=== PATIENT | female | born 1990 | race American Indian/Alaskan Native ===

== ENCOUNTER 2017-02-02 15:56 | Outpatient (CLI) | payer BC, MEDICAID ==
[2017-02-02] MEDS ORDERED: LACTATED RINGERS 500 ML IV ONE (18:23)
[2017-02-02 19:21] LABS: Bacteria,Urine 1+ /HPF (Negative); Bilirubin,Urine NEG (Negative); Blood,Urine NEG (Negative); Ketones,Urine 20 mg/dL (Negative); Leukocyte Esterase,Urine SM (Negative); Mucus,Urine 3+ /HPF; Nitrite,Urine NEG (Negative); Protein,Urine <15 mg/dL mg/dL (Negative); Urobilinogen,Urine < 2.0 mg/dL (<2.0)
[2017-02-02 19:29] VITALS: BP 106/60
[2017-02-02] MEDS ORDERED: LACTATED RINGERS 1,000 ML IV ONE (19:52)
== END 2017-02-02 20:58 | disposition home or self-care (01) ==
LOC: TRG 15:56 → EDSTATUS 16:02 → TRG 20:58
PROVIDERS: ATTEND Obstetrics & Gynecology Gynecology
DX: O26.893 Other specified pregnancy related conditions, third trimester (principal); R07.9 Chest pain, unspecified; R10.9 Unspecified abdominal pain; Z3A.31 31 weeks gestation of pregnancy
CPT/HCPCS: 36415; 81001; 82731; 93005; 93010; 96360; 96361; J7120

== ENCOUNTER 2017-03-09 21:15 | Outpatient (CLI) | payer MEDICAID ==
[2017-03-09 21:36] VITALS: BP 111/67
== END 2017-03-09 22:15 | disposition home or self-care (01) ==
LOC: LD 21:15 → TRG 21:15 → LD 21:29 → TRG 22:15
PROVIDERS: ATTEND Obstetrics & Gynecology Gynecology
DX: O47.03 False labor before 37 completed weeks of gestation, third trimester (principal); Z3A.36 36 weeks gestation of pregnancy

== ENCOUNTER 2017-03-18 17:37 | Outpatient (CLI) | payer MEDICAID ==
[2017-03-18 18:03] VITALS: BP 106/62
== END 2017-03-18 18:39 | disposition home or self-care (01) ==
LOC: TRG 17:37
PROVIDERS: ATTEND Obstetrics & Gynecology Gynecology
DX: O47.03 False labor before 37 completed weeks of gestation, third trimester (principal); Z3A.38 38 weeks gestation of pregnancy

== ENCOUNTER 2017-03-24 17:59 | Inpatient (IN) | payer MEDICAID ==
[2017-03-24] MEDS ORDERED: MINERAL OIL PO PRN (19:09)
[2017-03-24] MEDS ORDERED: ZOFRAN IV PRN ×2 (19:09→22:50)
[2017-03-24] MEDS ORDERED: BRETHINE IVP PRN (19:09)
[2017-03-24] MEDS ORDERED: STADOL IV PRN (19:09)
[2017-03-24] MEDS ORDERED: BRETHINE SUB-Q PRN (19:09)
[2017-03-24] MEDS ORDERED: ePHEDrine SULFATE IV PRN (19:09)
[2017-03-24] MEDS ORDERED: XYLOCAINE 2% INFILTRATI ONE (19:09)
[2017-03-24] MEDS ORDERED: NARCAN 0.4 MG/1 ML IV PRN (19:09)
[2017-03-24] MEDS ORDERED: SUBLIMAZE IV PRN (19:09)
--- NOTE | 2017-03-24 19:17 | History and Physical Report ---
History of Present Illness Date of examination: 03/24/17 Date of admission: 03/24/17 18:49 Chief complaint: Labor History of present illness: Pt is a 26yo BF EDC 03/31/17; EGA 39 0/7 weeks presents to L&D complaining of RUC's q 3-4 mins. 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 records are available and GBS is Negative. Past History Past Medical History: asthma [employer] History: herpes Family/Genetic History: none Social history: no significant social history, single - Obstetrical History Expected Date of Delivery: 03/31/17 Actual Gestation: 39 Week(s) 0 Day(s) : 4 Medications and Allergies Allergies Allergy/AdvReac Type Severity Reaction Status Date / Time Penicillins Allergy Severe Hives Verified 03/24/17 18:11 Home Medications Medication Instructions Recorded Confirmed Last Taken Type Acyclovir 400 mg PO TID 02/02/17 02/02/17 02/02/17 History Vit-Fe Fumar-FA [ 1 tab PO QDAY 02/02/17 02/02/17 02/02/17 History Vitamin] Active Meds: Active Medications Butorphanol Tartrate (Stadol) 2 mg IV Q2H PRN PRN Reason: Pain , Severe (7-10) Ephedrine Sulfate (Ephedrine Sulfate) 10 mg IV Q2M PRN PRN Reason: Hypotension Fentanyl (Sublimaze) 100 mcg IV Q2H PRN PRN Reason: Labor Pain Cefazolin Sodium (Ancef/Ns 1 Gm/50 Ml) 1 gm in 50 mls @ 100 mls/hr IV Q8HR HAVEN PRN Reason: Protocol Lactated Ringer's (Lactated Ringers) 1,000 mls @ 125 mls/hr IV DIRECT HAVEN Oxytocin/Sodium Chloride (Pitocin/Ns 20 Unit/1000ml Drip) 20 units in 1,000 mls @ 125 mls/hr IV DIRECT HAVEN Oxytocin/Sodium Chloride (Pitocin/Ns 30 Unit/500ml) 30 units in 500 mls @ 4 mls /hr IV TITR HAVEN PRN Reason: Protocol Oxytocin/Sodium Chloride (Pitocin/Ns 30 Unit/500ml) 30 units in 500 mls @ 1 mls /hr IV TITR HAVEN; 1 MILLIUNITS/MIN PRN Reason: Protocol Lidocaine (Xylocaine 2%) 20 ml INFILTRATI ONCE ONE Stop: 03/24/17 19:10 Mineral Oil (Mineral Oil) 30 ml PO QHS PRN PRN Reason: Constipation Naloxone HCl (Narcan 0.4 Mg/1 Ml) 0.1 mg IV Q2MIN PRN PRN Reason: Res Rate </= 8 or 02 SAT < 92% Ondansetron HCl (Zofran) 4 mg IV Q8H PRN PRN Reason: Nausea And Vomiting Terbutaline Sulfate (Brethine) 0.25 mg SUB-Q ONCE PRN PRN Reason: Hyperstimulation/Hypertonicity Terbutaline Sulfate (Brethine) 0.25 mg IVP ONCE PRN PRN Reason: Hyperstimulation/Hypertonicity Review of Systems All systems: negative - Vital Signs Vital signs: Vital Signs Temp Pulse Resp Pulse Ox 98.1 F 93 H 18 99 03/24/17 18:18 03/24/17 18:18 03/24/17 18:18 03/24/17 18:18 Temp Pulse Resp BP Pulse Ox 98.1 F 95 H 18 118/70 99 03/24/17 18:18 03/24/17 19:15 03/24/17 18:18 03/24/17 18:53 03/24/17 19:15 - Physical Exam Breasts: Positive: deferred Cardiovascular: Regular rate Lungs: Positive: Clear to auscultation Abdomen: Positive: normal appearance Genitourinary (Female): Positive: normal external genitalia Vagina: Positive: normal moisture Uterus: Positive: enlarged Extremities: Positive: normal - Obstetrical FHR: category 1 Uterine Contraction Monitor Mode: External Cervical Dilatation: 5 Cervical Effacement Percentage: 80 station: -2 Uterine Contraction Pattern: Regular Uterine Tone Measurement Phase: Contraction Uterine Contraction Intensity: Moderate Results Result Diagrams: 03/24/17 19:55 All other labs normal. Assessment and Plan - Patient Problems (1) 39 weeks gestation of Onset Date: 03/24/17 Current Visit: Yes Status: Acute Plan to address problem: A: IUP @ 39 0/7 weeks in labor GBS negative P: Admit to L&D for expectant vaginal delivery
[2017-03-24] MEDS ORDERED: PITOCin/NS 30 UNIT/500ML 30 UNITS/500 ML BAG IV SCH ×2 (20:00)
[2017-03-24] MEDS ORDERED: PITOCin/NS 20 UNIT/1000ML DRIP 20 UNITS/1,000 ML BAG IV SCH (20:00)
[2017-03-24] MEDS ORDERED: LACTATED RINGERS 1,000 ML IV SCH (20:00)
[2017-03-24] MEDS ORDERED: CLEOCIN 300 MG/50 mL 300 MG/50 ML BAG IV SCH (20:00)
[2017-03-24 20:36] LABS: Hematocrit 38.1 % (30.3-42.9); Mean Corpuscular HGB Conc 34 % (30-34); Mean Corpuscular Hemoglobin 29 pg (28-32); Mean Corpuscular Volume 86 fl (79-97); Red Blood Count 4.43 M/mm3 (3.65-5.03); White Blood Count 6.4 K/mm3 (4.5-11.0)
[2017-03-24 20:49] LABS: Platelet Count 122 K/mm3 (140-440)
[2017-03-24] MEDS ORDERED: PHENERGAN PO PRN (22:50)
[2017-03-24] MEDS ORDERED: LANSINOH TP PRN (22:50)
[2017-03-24] MEDS ORDERED: MILK OF MAGNESIA PO PRN (22:50)
[2017-03-24] MEDS ORDERED: NORCO 5/325 PO PRN (22:50)
[2017-03-24] MEDS: PITOCin/NS 20 UNIT/1000ML DRIP 20 UNITS/1,000 ML BAG IV SCH (22:50)
[2017-03-24] MEDS ORDERED: TYLENOL PO PRN (22:50)
[2017-03-24] MEDS ORDERED: DULCOLAX PR PRN (22:50)
[2017-03-24] MEDS ORDERED: BENADRYL PO PRN (22:50)
[2017-03-24] MEDS ORDERED: TUCKS PAD TP PRN (22:50)
[2017-03-24] MEDS ORDERED: PHENERGAN PR PRN (22:50)
--- NOTE | 2017-03-24 22:56 | Procedure Note ---
OB Delivery Note - Delivery Date of Delivery: 03/24/17 Surgeon: SOFIA GARDUNO Estimated blood loss: 100cc - Vaginal Delivery presentation: vertex Delivery position: OA Intrapartum events: none Delivery induction: none Delivery augmentation: pitocin Delivery monitor: external FHT, external uterine Route of delivery: Delivery placenta: spontaneous Delivery cord: 3 umbilical vessels Episiotomy: none Delivery laceration: none Anesthesia: intravenous - Infant A at 1 minute: 9 at 5 minutes: 9 Infant Gender: Male (3442gms)
[2017-03-24] MEDS ORDERED: SODIUM CHLORIDE FLUSH SYRINGE 10 ML IV PRN (23:00)
[2017-03-25] MEDS: PITOCin/NS 20 UNIT/1000ML DRIP 20 UNITS/1,000 ML BAG IV SCH (01:04)
[2017-03-25] MEDS: MOTRIN PO SCH ×3 (01:18→17:15)
[2017-03-25] MEDS ORDERED: ANCEF/NS 1 GM/50 ML 1 GM/50 ML BAG IV SCH (03:10)
[2017-03-25] MEDS: FEOSOL PO SCH ×2 (09:22→22:00)
[2017-03-25] MEDS: PRENATAL VITAMIN PO SCH (09:22)
--- NOTE | 2017-03-25 10:44 | Progress Note ---
Assessment and Plan - Patient Problems (1) 39 weeks gestation of Onset Date: 03/24/17 Current Visit: Yes Status: Resolved (2) (normal spontaneous vaginal delivery) Onset Date: 03/25/17 Current Visit: Yes Status: Resolved Plan to address problem: A: S/P - PPD #1 Doing well P: May go home tomorrow Subjective - Subjective Date of service: 03/25/17 Principal diagnosis: s/p - PPD #1 Interval history: Pt is feeling well. Bleeding improved. Patient reports: appetite normal, voiding normally, pain well controlled, flatus , ambulating normally : doing well, nursing well Objective - Vital Signs Latest vital signs: Vital Signs Temp Pulse Resp BP BP Pulse Ox 03/25/17 08:37 98.6 F 71 18 103/60 03/25/17 04:00 98.6 F 66 18 114/68 03/25/17 01:18 18 03/25/17 01:17 18 03/25/17 00:55 98.6 F 66 16 101/72 03/25/17 00:13 75 126/64 03/25/17 00:00 97 F L 18 03/24/17 23:59 74 123/66 03/24/17 23:43 75 130/84 03/24/17 23:00 96.5 F L 18 03/24/17 22:45 97.8 F 20 03/24/17 22:36 104 H 94 03/24/17 22:35 92 H 98 03/24/17 22:30 97.6 F 98 H 20 98 03/24/17 22:25 113 H 99 03/24/17 22:21 111 H 87 03/24/17 22:20 95 H 100 03/24/17 22:15 104 H 99 03/24/17 22:10 94 H 99 03/24/17 22:05 87 99 03/24/17 22:02 94 H 94 03/24/17 22:00 90 100 03/24/17 21:55 83 100 03/24/17 21:47 84 95 03/24/17 21:46 90 92 03/24/17 21:42 99 H 98 03/24/17 21:37 92 H 96 03/24/17 21:32 98 H 97 03/24/17 21:27 102 H 97 03/24/17 21:22 88 100 03/24/17 21:17 90 97 03/24/17 19:39 89 118/73 03/24/17 19:38 94 H 96 03/24/17 19:33 98.7 F 86 18 118/73 98 03/24/17 19:25 89 97 03/24/17 19:20 88 99 03/24/17 19:15 95 H 99 03/24/17 18:53 92 H 118/70 98 03/24/17 18:48 87 98 03/24/17 18:43 85 98 03/24/17 18:38 95 H 99 03/24/17 18:36 85 118/63 03/24/17 18:33 87 97 03/24/17 18:28 95 H 100 03/24/17 18:27 85 114/55 03/24/17 18:23 89 98 03/24/17 18:18 98.1 F 93 H 18 99 Intake and Output 03/24/17 03/25/17 03/25/17 22:59 06:59 14:59 Intake Total 1418.333 Output Total 1300 600 Balance 118.333 -600 Intake: IV 558.333 PITOCin/NS 20 UNIT/1000ML 558.333 DRIP 20 units In 1,000 ml @ 250 mls/hr IV DIRECT HAVEN Rx#:[id number] Oral 560 Intake, Free Water 300 Output: Urine 1300 600 Void 1300 600 Other: Total, Intake Amount 200 Total, Output Amount 800 600 # Voids Void 1 1 Weight 97.976 kg Estimated Blood Loss 100 - Exam Breasts: Present: deferred Cardiovascular: Present: Regular rate Lungs: Present: Clear to auscultation Abdomen: Present: normal appearance Uterus: Present: normal, firm, fundal height below umbilicus Extremities: Present: normal - Labs Labs: Abnormal lab results 03/24/17 Range/Units 19:55 Plt Count 122 L (140-440) K/mm3
[2017-03-25 11:02] LABS: Hematocrit 37.9 % (30.3-42.9); Hemoglobin 12.3 gm/dl (10.1-14.3)
--- NOTE | 2017-03-25 11:03 | Discharge Summary ---
Providers - Providers Date of Admission: 03/24/17 18:49 Date of discharge: 03/26/17 Attending physician: SOFIA GARDUNO Primary care physician: ANABELLA MARIANO Hospitalization Reason for admission: active labor, IUP at term Delivery: Episiotomy: none Laceration: none Other procedures: none complications: none Discharge diagnosis: IUP at term delivered [place] baby: male Hospital course: Unremarkable. Condition at discharge: Good Disposition: DC-01 TO HOME OR SELFCARE - Discharge Diagnoses (1) 39 weeks gestation of Status: Resolved (2) (normal spontaneous vaginal delivery) Status: Resolved Plan - Discharge Medications Prescriptions: Ferrous Sulfate [Feosol 325 MG tab] 325 mg PO BID #60 tablet Ibuprofen [Motrin 600 MG tab] 600 mg PO Q6HR #30 tablet Vit-Fe Fumar-FA [ Vitamin] 1 each PO QDAY #30 tablet - Provider Discharge Summary Activity: routine, no sex for 6 weeks, no heavy lifting 4 weeks, no strenuous exercise Diet: routine Instructions: routine Additional instructions: [] Smoking cessation referral if applicable(refer to patient education folder for contact #) [] Refer to [facility]'s [facility] Booklet Call your doctor immediately for: * Fever > 100.5 * Heavy vaginal bleeding ( >1 pad per hour) * Severe persistent headache * Shortness of breath * Reddened, hot, painful area to leg or breast * Drainage or odor from incision. * Keep incision clean and dry at all times and follow doctor's instructions regarding bathing/showering - Follow up plan Follow up: ANABELLA MARIANO MD [Primary Care Provider] - 6 Weeks
[2017-03-25] MEDS ORDERED: M-M-R II VACCINE SUB-Q ONE (22:50)
[2017-03-26] MEDS ORDERED: BOOSTRIX IM ONE (06:00)
[2017-03-26] MEDS: PRENATAL VITAMIN PO SCH (10:02)
[2017-03-26] MEDS: FEOSOL PO SCH (10:02)
[2017-03-26] MEDS: MOTRIN PO SCH ×2 (10:15)
[2017-03-26 15:18] VITALS: BP 111/50
== END 2017-03-26 17:30 | disposition home or self-care (01) | DRG 774 ==
LOC: TRG 17:59 → LD 18:49 → OB 03-25 01:01
PROVIDERS: ADMIT Obstetrics & Gynecology; ATTEND Obstetrics & Gynecology
PROC: 10E0XZZ Delivery of Products of Conception, External Approach (ICD-10-PCS; principal; 2017-03-24)
PROC: 3E0234Z Introduction of Serum, Toxoid and Vaccine into Muscle, Percutaneous Approach (ICD-10-PCS; 2017-03-25)
DX: O99.52 Diseases of the respiratory system complicating childbirth (principal); O98.32 Other infections with a predominantly sexual mode of transmission complicating childbirth; J45.909 Unspecified asthma, uncomplicated; Z37.0 Single live birth; Z3A.39 39 weeks gestation of pregnancy; Z23 Encounter for immunization; Z88.0 Allergy status to penicillin; A60.00 Herpesviral infection of urogenital system, unspecified
CPT/HCPCS: 36415; 85014; 85018; 85027; 86592; 86850; 86900; 86901; 99211; A6250; G0463; J2590; J3010; J7120

== ENCOUNTER 2018-05-20 06:01 | Day surgery (SDC) | payer OTHER ==
[2018-05-20] MEDS ORDERED: LACTATED RINGERS 1,000 ML IV SCH (06:11)
[2018-05-20] MEDS ORDERED: PEPCID IV NR (07:09)
[2018-05-20] MEDS ORDERED: MARCAINE 0.5% INFILTRATI ONE ×3 (07:14→07:36)
[2018-05-20] MEDS ORDERED: NACL 0.9% IR ONE (07:31)
--- NOTE | 2018-05-20 07:31 | Short Stay Summary ---
Short Stay Documentation Date of service: 05/20/18 Narrative H&P: Pt is a 27yo BF LMP 05/13/18 presents for permanent sterilization - History Principal diagnosis: Desires permanent sterilization H&P: obtained from office Past Medical History: other (Asthma) Past Surgical History: No surgical history Social history: no significant social history, single - Allergies and Medications Current Medications: Allergies Penicillins Allergy (Severe, Verified 05/16/18 12:57) Hives Home Medications Medication Instructions Recorded Confirmed Last Taken Type No Known Home Medications [No 05/16/18 05/16/18 Unknown History Reported Home Medications] Active Medications Famotidine (Pepcid) 20 mg IV PREOP NR Stop: 05/20/18 23:59 Last Admin: 05/20/18 07:22 Dose: 20 mg Documented by: Lactated Ringer's (Lactated Ringers) 1,000 mls @ 100 mls/hr IV DIRECT HAVEN Stop: 05/20/18 23:59 Last Admin: 05/20/18 06:45 Dose: 100 mls/hr Documented by: Midazolam HCl (Versed) 2 mg IV PREOP NR Stop: 05/20/18 23:59 - Physical exam General appearance: no acute distress Integumentary: no rash HEENT: Atraumatic Lungs: Clear to auscultation Breasts: deferred Heart: Regular rate Gastrointestinal: normal Female Genitourinary: deferred Rectal Exam: deferred Extremities: no ischemia, No edema Neurological: Normal gait, Normal speech - Brief post op/procedure progress note Date of procedure: 05/20/18 Pre-op diagnosis: Desires permanent sterilization Post-op diagnosis: same Procedure: Laparoscopic bilateral tubal ligation Anesthesia: GETA Findings: Normal uterus with normal tubes and ovaries bilaterally. Surgeon: SOFIA GARDUNO Estimated blood loss: minimal Pathology: none Condition: stable - Hospital course Hospital course: Unremarkable. - Disposition Condition at discharge: Good Disposition: DC-01 TO HOME OR SELFCARE - Discharge Diagnoses (1) Encounter for sterilization Status: Resolved Short Stay Discharge Plan Activity: no restrictions Weight Bearing Status: Non-Weight Bearing Diet: regular Wound: open to air, keep clean and dry Follow up with: CHACHA MAI MD [Primary Care Provider] - 7 Days SOFIA GARDUNO MD [Staff Physician] - 14 Days Prescriptions: HYDROcodone/APAP 5-325 [[place] 5/325] 1 each PO Q6HR PRN #20 tablet PRN Reason: Pain
[2018-05-20] MEDS ORDERED: DIPRIVAN 10 MG/ML IV ONE ×2 (07:33→08:14)
[2018-05-20] MEDS ORDERED: SUBLIMAZE ONE (07:34)
[2018-05-20] MEDS ORDERED: GENTAMICIN IV SCH (07:45)
[2018-05-20 07:49] LABS: Hematocrit 39.6 % (30.3-42.9); Hemoglobin 13.2 gm/dl (10.1-14.3)
[2018-05-20] MEDS ORDERED: DECADRON ONE (07:55)
[2018-05-20] MEDS ORDERED: TORADOL ONE (07:55)
[2018-05-20] MEDS ORDERED: ROBINUL ONE (07:55)
[2018-05-20] MEDS ORDERED: XYLOCAINE CARDIAC IV ONE (07:55)
[2018-05-20] MEDS ORDERED: ZEMURON IV ONE (07:55)
[2018-05-20] MEDS ORDERED: BLOXIVERZ ONE (07:55)
[2018-05-20] MEDS ORDERED: ZOFRAN ONE (07:55)
[2018-05-20] MEDS ORDERED: VERSED IV NR (08:00)
[2018-05-20] MEDS ORDERED: CLEOCIN 600 MG/50 mL 600 MG/50 ML BAG IV NR (08:00)
[2018-05-20] MEDS ORDERED: GENTAMICIN 160 MG in NACL 0.9% 100 ML IV ONE (08:00)
--- NOTE | 2018-05-20 09:02 | Operative Report ---
Operative Report Operative Report: PREOPERATIVE DIAGNOSIS: Desires permanent sterilization POSTOPERATIVE DIAGNOSIS: Same OPERATIVE PROCEDURE: Laparoscopic bilateral tubal ligation. SURGEON: Homero Downs MD ANESTHESIA: Gen. endotracheal intubation ANESTHESIOLOGIST: Dr. Elmore ESTIMATED BLOOD LOSS: Minimal FINDINGS: Normal uterus with normal tubes and ovaries bilaterally COMPLICATIONS: None COUNTS: Correct x3. PROCEDURE: After the patient was correctly identified and after general anesthesia was administered, the patient was prepped and draped in usual sterile fashion and placed in dorsal lithotomy position. First, the bladder was emptied using a straight catheter. Next, a speculum was placed in the vaginal vault and the anterior lip of the cervix was grasped using a single-tooth tenaculum. The uterine manipulator was then placed and the tenaculum and speculum were removed. Attention was then turned to the abdomen where first a periumbilical incision was made using a skin knife, and the Optiview trocar was inserted under direct visualization. After an adequate amount of abdominal insufflation, visualization of the pelvic organs found the uterus to be normal, and the tubes and ovaries to be normal bilaterally. Next, the left fallopian tube was grasped using the Voyant device, and after identifying the fimbriated end of the left tube, this tube was cauterized in 3 continuous [address] along the proximal portion of the left tube. The same procedure was performed on the right fallopian tube after first identifying the fimbriated end of the right tube. This tube was also cauterized in 3 continuous places along the proximal portion of the right tube. At this point, the procedure was then considered complete. All instruments were removed from the abdomen. The abdomen was deflated and the periumbilical incision was closed using 0 Vicryl suture in a [id number] configuration on the fascia, followed by 4-0 Monocryl suture in sub-cuticular fashion on the skin. The incision was also infiltrated using 0.5% Marcaine solution. The uterine manipulator was removed. The patient tolerated the procedure well and was transferred to recovery room stable condition.
[2018-05-20] MEDS ORDERED: ZOFRAN IV PRN (09:31)
[2018-05-20] MEDS ORDERED: SUBLIMAZE IV PRN (09:31)
[2018-05-20] MEDS ORDERED: NORCO 5/325 ONE (10:05)
[2018-05-20 10:07] VITALS: BP 122/79
[2018-05-20] MEDS ORDERED: NORCO 5/325 PO ONE (10:15)
--- NOTE | 2018-05-20 16:37 | Anesthesia Day of Surgery ---
Anesthesia Day of Surgery - Day of Surgery Patient Examined: Yes Patient H&P Reviewed: Yes Patient is NPO: Yes Beta Blockers: No Cardiac Clearance: No Pulmonary Clearance: No
--- NOTE | 2018-05-20 16:39 | Anesthesia Consultation ---
Anesthesia Consult and Med Hx Date of service: 05/20/18 - Airway Anesthetic Teeth Evaluation: Chipped ROM Head & Neck: Adequate Mental/Hyoid Distance: Adequate Mallampati Class: Class II Intubation Access Assessment: Good - Pulmonary Exam CTA: Yes - Cardiac Exam Cardiac Exam: RRR - Pre-Operative Health Status ASA Pre-Surgery Classification: ASA2 Proposed Anesthetic Plan: General - Pulmonary Hx Asthma: Yes (Last treatment years ago) - Cardiovascular System Hx Hypertension: No - Central Nervous System Hx Seizures: No Hx Psychiatric Problems: No - Endocrine Hx Renal Disease: No Hx Hypothyroidism: No Hx Hyperthyroidism: No - Hematic Hx Anemia: No Hx Sickle Cell Disease: No - Other Systems Hx Alcohol Use: Yes (Occas wine) Hx Substance Use: Yes (Occas marijuana) Hx Cancer: No
== END 2018-05-20 10:40 | disposition home or self-care (01) ==
LOC: OR 06:01
PROVIDERS: ATTEND Obstetrics & Gynecology
DX: Z30.2 Encounter for sterilization (principal); K21.9 Gastro-esophageal reflux disease without esophagitis; Z72.89 Other problems related to lifestyle; Z98.890 Other specified postprocedural states; Z79.899 Other long term (current) drug therapy; Z83.3 Family history of diabetes mellitus; Z88.0 Allergy status to penicillin; Z82.49 Family history of ischemic heart disease and other diseases of the circulatory system
CPT/HCPCS: 36415; 58670; 81025; 85014; 85018; J1100; J2001; J2250; J2405; J2704; J2710; J3010; J7120; J1580; J1885

== ENCOUNTER 2018-12-06 11:10 | Emergency (ER) | payer OTHER ==
--- NOTE | 2018-12-06 11:53 | Emergency Department Report ---
ED Chest Pain HPI - General Chief Complaint: Chest Pain Stated Complaint: CHEST PAIN Time Seen by Provider: 12/06/18 11:36 Source: patient, family Mode of arrival: Ambulatory Limitations: No Limitations - History of Present Illness Initial Comments: 20-year-old female presents to the emergency room complaining of right-sided chest pain 2 days and reports that yesterday she has numbness and tingling to her right arm and fingers of right arm. She reports that she has pain with taking a deep breath. History of asthma but denies any asthma symptoms such as cough, wheezing which she said is her usual presentation for asthma flareup. Denies any history of blood clots, control, recent long distance travel by car or airplane. She reports that she had a tubal ligation 2 months ago. Denies any fever or chills or nausea or vomiting. Denies any abdominal or back pain. Pain is 6 out of 10 with taking a deep breath . Pain is intermittent. Alleviated with expiration exacerbated with inspiration. Denies any swelling to her extremities. Denies any calf pain or tenderness. MD Complaint: chest pain (right chest pain with radiation of pain to right arm,), other ( shortness of breath) Onset/Timin -: days(s) Onset: other (() Pain Location: right chest (inspiration) Pain Radiation: RUE Severity: moderate Severity scale (0 -10): 6 Quality: other (burning) Consistency: intermittent Improves With: other (expiration) Worsens With: inspiration Context: recent surgery re: dyspnea. denies: nausea, vomting, diaphoresis, sense of impending doom Other Symptoms: denies: cough, fever, syncope, rash, acid taste in mouth, leg swelling, palpitations, burping Treatments Prior to Arrival: none Aspirin use within the Past 7 Days: (0) No - Related Data On Oral Contraceptives: No Previous Rx's Medication Instructions Recorded Last Taken Type HYDROcodone/APAP 5-325 [[place] 1 each PO Q6HR PRN #20 tablet 05/20/18 Unknown Rx 5/325] Ibuprofen [Motrin] 600 mg PO Q8H PRN #12 tablet 12/06/18 Unknown Rx Allergies Allergy/AdvReac Type Severity Reaction Status Date / Time Penicillins Allergy Severe Hives Verified 05/16/18 12:57 Heart Score - HEART Score History: Slightly suspicious EKG: Non-specific Age: < 45 Risk factors: No known risk factors Troponin: < normal limit HEART Score: 1 - Critical Actions Critical Actions: 0-3 pts:0.9-1.7%risk of adverse cardiac event.Candidate for discharge ED Review of Systems ROS: Stated complaint: CHEST PAIN Other details as noted in HPI Constitutional: denies: chills, fever Eyes: denies: eye discharge ENT: denies: throat pain, congestion Respiratory: shortness of breath (with inspiration). denies: cough, wheezing Cardiovascular: chest pain. denies: palpitations, dyspnea on exertion, edema, syncope Gastrointestinal: denies: nausea, vomiting Genitourinary: denies: dysuria, hematuria Musculoskeletal: denies: back pain, arthralgia Skin: denies: rash Neurological: paresthesias. denies: headache, weakness, numbness, confusion, abnormal gait, vertigo ED Past Medical Hx - Past Medical History Previous Medical History?: Yes Hx Hypertension: No Hx Diabetes: No Hx Deep Vein Thrombosis: No Hx GERD: Yes Hx Renal Disease: No Hx Sickle Cell Disease: No Hx Seizures: No Hx Asthma: Yes (Last treatment years ago) Hx HIV: No - Surgical History Past Surgical History?: Yes Additional Surgical History: IUD removal due to imbedded - Family History Family history: hypertension - Social History Smoking Status: Current Some Day Smoker Substance Use Type: Marijuana - Medications Home Medications: Home Medications Medication Instructions Recorded Confirmed Last Taken Type HYDROcodone/APAP 5-325 [[place] 1 each PO Q6HR PRN #20 tablet 05/20/18 Unknown Rx 5/325] Ibuprofen [Motrin] 600 mg PO Q8H PRN #12 tablet 12/06/18 Unknown Rx ED Physical Exam - General Limitations: No Limitations General appearance: alert, in no apparent distress - Head Head exam: Present: atraumatic, normocephalic - Eye Eye exam: Present: normal appearance - ENT ENT exam: Present: normal exam - Neck Neck exam: Present: normal inspection, full ROM. Absent: tenderness, lymphadenopathy - Respiratory Respiratory exam: Present: normal lung sounds bilaterally. Absent: respiratory distress, wheezes, rales, rhonchi, stridor, chest wall tenderness, accessory muscle use, decreased breath sounds, prolonged expiratory - Cardiovascular Cardiovascular Exam: Present: regular rate, normal rhythm, normal heart sounds - GI/Abdominal GI/Abdominal exam: Present: soft, normal bowel sounds. Absent: tenderness - Extremities Exam Extremities exam: Present: normal inspection, full ROM, normal capillary refill, other (No cce. + 2 pulses in all extremities, no neurovascular compromise). Absent: tenderness, pedal edema, joint swelling, calf tenderness - Back Exam Back exam: Present: normal inspection, full ROM, other (ambulates without any difficulties). Absent: muscle spasm, paraspinal tenderness, vertebral tend erness - Neurological Exam Neurological exam: Present: alert, oriented X3, normal gait - Psychiatric Psychiatric exam: Present: normal affect, depressed - Skin Skin exam: Present: warm, dry, intact, normal color. Absent: rash ED Course Vital Signs 12/06/18 12/06/18 11:14 14:30 Temperature 98.8 F Pulse Rate 87 82 Respiratory 18 18 Rate Blood Pressure 168/93 Blood Pressure 152/82 [Left] O2 Sat by Pulse 96 98 Oximetry - Reevaluation(s) Reevaluation #1: 12/06/18 14:41 Patient given Toradol 30 mg IV, I explained to her results of EKG, chest x-ray, lab results and she voiced understanding. She said pain is better GIOVANNI score - Giovanni Score Age > 65: (0) No Aspirin use within the Past 7 Days: (0) No 3 or more CAD Risk Factors: (0) No 2 or more Angina events in past 24 hrs: (0) No Known CAD with more than 50% Stenosis: (0) No Elevated Cardiac Markers: (0) No ST Deviation Greater than 0.5mm: (0) No GIOVANNI Score: 0 ED Medical Decision Making - Lab Data Result diagrams: 12/06/18 12:09 12/06/18 12:09 Lab Results 12/06/18 12/06/18 12/06/18 Range/Units 12:09 12:09 12:09 WBC 4.8 (4.5-11.0) K/mm3 RBC 4.97 (3.65-5.03) M/mm3 Hgb 14.3 (10.1-14.3) gm/dl Hct 43.0 H (30.3-42.9) % MCV 87 (79-97) fl MCH 29 (28-32) pg MCHC 33 (30-34) % RDW 13.9 (13.2-15.2) % Plt Count 161 (140-440) K/mm3 Lymph % (Auto) 43.6 H (13.4-35.0) % [place] % (Auto) 6.4 (0.0-7.3) % Eos % (Auto) 1.4 (0.0-4.3) % Baso % (Auto) 0.7 (0.0-1.8) % Lymph # 2.1 (1.2-5.4) K/mm3 [place] # 0.3 (0.0-0.8) K/mm3 Eos # 0.1 (0.0-0.4) K/mm3 Baso # 0.0 (0.0-0.1) K/mm3 Seg Neutrophils % 47.9 (40.0-70.0) % Seg Neutrophils # 2.3 (1.8-7.7) K/mm3 D-Dimer < 135.00 (0-234) ng/mlDDU Sodium 138 (137-145) mmol/L Potassium 4.2 (3.6-5.0) mmol/L Chloride 102.6 (98-107) mmol/L Carbon Dioxide 22 (22-30) mmol/L Anion Gap 18 mmol/L BUN 11 (7-17) mg/dL Creatinine 0.7 (0.7-1.2) mg/dL Estimated GFR > 60 ml/min BUN/Creatinine Ratio 16 % Glucose 93 (65-100) mg/dL Calcium 9.3 (8.4-10.2) mg/dL Total Bilirubin 0.40 (0.1-1.2) mg/dL AST 15 (5-40) units/L ALT 11 (7-56) units/L Alkaline Phosphatase 63 (35-129) units/L Troponin T < 0.010 (0.00-0.029) ng/mL Total Protein 7.9 (6.3-8.2) g/dL Albumin 4.5 (3.9-5) g/dL Albumin/Globulin Ratio 1.3 % Urine HCG, Qual (Negative) 12/06/18 Range/Units Unknown WBC (4.5-11.0) K/mm3 RBC (3.65-5.03) M/mm3 Hgb (10.1-14.3) gm/dl Hct (30.3-42.9) % MCV (79-97) fl MCH (28-32) pg MCHC (30-34) % RDW (13.2-15.2) % Plt Count (140-440) K/mm3 Lymph % (Auto) (13.4-35.0) % [place] % (Auto) (0.0-7.3) % Eos % (Auto) (0.0-4.3) % Baso % (Auto) (0.0-1.8) % Lymph # (1.2-5.4) K/mm3 [place] # (0.0-0.8) K/mm3 Eos # (0.0-0.4) K/mm3 Baso # (0.0-0.1) K/mm3 Seg Neutrophils % (40.0-70.0) % Seg Neutrophils # (1.8-7.7) K/mm3 D-Dimer (0-234) ng/mlDDU Sodium (137-145) mmol/L Potassium (3.6-5.0) mmol/L Chloride (98-107) mmol/L Carbon Dioxide (22-30) mmol/L Anion Gap mmol/L BUN (7-17) mg/dL Creatinine (0.7-1.2) mg/dL Estimated GFR ml/min BUN/Creatinine Ratio % Glucose (65-100) mg/dL Calcium (8.4-10.2) mg/dL Total Bilirubin (0.1-1.2) mg/dL AST (5-40) units/L ALT (7-56) units/L Alkaline Phosphatase (35-129) units/L Troponin T (0.00-0.029) ng/mL Total Protein (6.3-8.2) g/dL Albumin (3.9-5) g/dL Albumin/Globulin Ratio % Urine HCG, Qual Negative (Negative) - EKG Data -: EKG Interpreted by Me (Dr. Benson) EKG shows normal: sinus rhythm Rate: normal - EKG Data Interpretation: nonspecific ST-T wave [place] - Radiology Data Radiology results: report reviewed Chest x-ray dictated by radiologist and reported myself. No abnormalities seen Findings [facility] [address] [place] [address] XRay Report Signed Patient: SHELIA MERCHANT MR#: [id number] : 1990 Acct:[id number] Age/Sex: 28 / F ADM Date: 12/06/18 Loc: ED Attending Dr: Ordering Physician: BECCA BENSON MD Date of Service: 12/06/18 Procedure(s): XR chest routine 2V Accession Number(s): [id number] cc: BECCA BESNON MD Fluoro Time In Minutes: CHEST PA AND LATERAL VIEWS INDICATION: Chest Pain. COMPARISON: None FINDINGS: Support devices: None Heart: Normal Lungs/Pleura: No acute pulmonary or pleural findings. IMPRESSION: 1. No significant abnormality. Signer Name: Hardy Howell MD Signed: 12/06/2018 11:47 AM Workstation Name: [id number] Transcribed By: TM Dictated By: Hardy Howell MD Electronically Authenticated By: Hardy Howell MD Signed Date/Time: 12/06/18 114 DD/ 46 TD/TT: - Medical Decision Making This is a 28-year-old female here reports that she has CP x 2 days with pain radiating to rt arm and pain intermittent. Pain associates with inspiration. Cardiac risk score is 1 and GIOVANNI 0. Pt with elevated BP without any HX of BP . Troponin within normal level, D-dimer nl. CXR nl. labs stable. I discussed this with Dr. Benson and she agrees with treatment plan. EKG stable. I discussed lab results, EKG and diagnostics results the patient and I discussed that she needs to follow up with her primary care in 2 days or if her chest pain worsens and return to return to the emergency room. Patient was given Toradol 30 mg IV and emergency room and she says she is feeling better. I also discussed with her for chest pain return she will need to follow up with a applique cutter and I will refer her to a applique cutter. Patient is stable, vital signs stable she is afebrile I also discussed with her that her blood pressure is elevated and she needs to check her blood pressure and keep log and take to her primary care visit for evaluation since she has a history of elevated blood pressure and her family and she voiced understanding. Patient discharged home in stable condition with prescription for Motrin to treat pleurisy. Patient has a primary care physician that she will call on Saturday for follow-up visit. - Differential Diagnosis ACS, PE, asthma versus bronchitis, pleurisy, URI Critical care attestation.: If time is entered above; I have spent that time in minutes in the direct care of this critically ill patient, excluding procedure time. ED Disposition Clinical Impression: Pleuritic chest pain, Elevated blood pressure reading without diagnosis of hypertension Disposition: TO HOME OR SELFCARE Is pt being admited?: No Does the pt Need Aspirin: No Condition: Stable Instructions: Chest Pain (ED), Low Sodium Diet (ED), Hypertension (ED) Additional Instructions: Please follow-up with the primary care physician in 2 days or return to the emergency room if your chest pain return. Keep a daily log of your blood pressure and take to primary care physician with you for evaluation and treatment if needed Take Motrin as prescribed for pleuritic chest pain and please take this medication with food as this can cause irritation to the stomach lining. If you chest pain continues she will need to see a applique cutter for further evaluation and treatment and see referral on discharge instruction paperwork Increase fluid intake and rest for a couple days. Prescriptions: Ibuprofen [Motrin] 600 mg PO Q8H PRN #12 tablet PRN Reason: pleuritic chest pain Referrals: PRIMARY CAREMD [Referring] - 12/08/18 RUCHI FANG MD [Staff Physician] - 2-3 Days Forms: Work/School Release Form(ED)
[2018-12-06] MEDS ORDERED: TORADOL IVP ONE (11:56)
[2018-12-06 12:37] LABS: Basophils % (Auto) 0.7 % (0.0-1.8); Eosinophils # (Auto) 0.1 K/mm3 (0.0-0.4); Eosinophils % (Auto) 1.4 % (0.0-4.3); Hemoglobin 14.3 gm/dl (10.1-14.3); Lymphocytes # (Auto) 2.1 K/mm3 (1.2-5.4); Lymphocytes % (Auto) 43.6 % (13.4-35.0); Mean Corpuscular HGB Conc 33 % (30-34); Mean Corpuscular Volume 87 fl (79-97); Monocytes # (Auto) 0.3 K/mm3 (0.0-0.8); Monocytes % (Auto) 6.4 % (0.0-7.3); Red Blood Count 4.97 M/mm3 (3.65-5.03); Red Cell Distribution Width 13.9 % (13.2-15.2)
[2018-12-06 12:40] LABS: Platelet Count 161 K/mm3 (140-440)
[2018-12-06 13:10] LABS: HCG Qualitative,Urine Negative (Negative)
[2018-12-06 13:39] LABS: Alanine Aminotransferase 11 units/L (7-56); Albumin 4.5 g/dL (3.9-5); BUN/Creatinine Ratio 16; Blood Urea Nitrogen 11 mg/dL (7-17); Calcium 9.3 mg/dL (8.4-10.2); Hemolysis Index 16
[2018-12-06 15:19] VITALS: BP 152/82
== END 2018-12-06 15:19 | disposition home or self-care (01) ==
LOC: ED 11:10
DX: R09.1 Pleurisy (principal); R03.0 Elevated blood-pressure reading, without diagnosis of hypertension; K21.9 Gastro-esophageal reflux disease without esophagitis; J45.909 Unspecified asthma, uncomplicated; F17.200 Nicotine dependence, unspecified, uncomplicated; F12.90 Cannabis use, unspecified, uncomplicated; Z98.890 Other specified postprocedural states; Z79.899 Other long term (current) drug therapy; Z88.0 Allergy status to penicillin
CPT/HCPCS: 36415; 71046; 80053; 81025; 84484; 85025; 85379; 93005; 93010; 96374; 99284; J1885

== ENCOUNTER 2019-09-15 15:52 | Emergency (ER) | payer OTHER ==
[2019-09-15 16:17] VITALS: BP 136/81
--- NOTE | 2019-09-15 16:32 | Emergency Department Report ---
Blank Doc - Documentation Documentation: 29-year-old female that presents with abdominal pain with bright red blood seen in stool today. Has nausea without vomiting. Stated has dizziness. This initial assessment/diagnostic orders/clinical plan/treatment(s) is/are subject to change based on patient's health status, clinical progression and re- assessment by fellow clinical providers in the ED. Further treatment and workup at subsequent clinical providers discretion. Patient/guardians urged not to elope from the ED as their condition may be serious if not clinically assessed and managed. Initial orders include: 1- Patient sent to [facility] for further evaluation and treatment 2- labs 3- UA
[2019-09-15 17:06] LABS: Basophils % (Auto) 0.5 % (0.0-1.8); Eosinophils # (Auto) 0.2 K/mm3 (0.0-0.4); Eosinophils % (Auto) 3.4 % (0.0-4.3); Hematocrit 36.9 % (30.3-42.9); Hemoglobin 12.2 gm/dl (10.1-14.3); Lymphocytes # (Auto) 2.6 K/mm3 (1.2-5.4); Lymphocytes % (Auto) 43.2 % (13.4-35.0); Mean Corpuscular HGB Conc 33 % (30-34); Mean Corpuscular Volume 87 fl (79-97); Monocytes # (Auto) 0.4 K/mm3 (0.0-0.8); Monocytes % (Auto) 6.1 % (0.0-7.3); Red Blood Count 4.23 M/mm3 (3.65-5.03); Red Cell Distribution Width 14.4 % (13.2-15.2)
[2019-09-15 17:30] LABS: Alanine Aminotransferase 13 units/L (7-56); Albumin 4.3 g/dL (3.9-5); BUN/Creatinine Ratio 17; Blood Urea Nitrogen 10 mg/dL (7-17); Calcium 9.4 mg/dL (8.4-10.2); Hemolysis Index 19
[2019-09-15 17:47] LABS: Bacteria,Urine 1+ /HPF (Negative); Bilirubin,Urine NEG (Negative); Blood,Urine NEG (Negative); Color,Urine Yellow (Yellow); Mucus,Urine FEW /HPF; Protein,Urine <15 mg/dL mg/dL (Negative); Urobilinogen,Urine < 2.0 mg/dL (<2.0)
[2019-09-15 17:54] LABS: Platelet Count 156 K/mm3 (140-440)
--- NOTE | 2019-09-15 20:06 | Emergency Department Report ---
ED Abdominal Pain HPI - General Chief Complaint: GI Bleed Stated Complaint: ABD PAIN/BLOOD IN STOOL Time Seen by Provider: 09/15/19 16:30 Source: patient Mode of arrival: Ambulatory Limitations: No Limitations - History of Present Illness Initial Comments: 29-year-old -[place]ian female presents to the emergency room complaining of abdominal pain and bright red blood in her stool that she saw this morning. Patient denies any dysuria denies any vaginal discharge denies any blood in the urine but she states that she saw blood in her stool that was quantitative of a teaspoon x1. Patient denies any rectal pain. Patient states her pain is locat ed in her lower abdomen and towards her left. Patient's last menstrual period was 08/27/2019 she is 3 para 3 with her tubes tied. Patient states she did have a loose stool which her stool is usually soft. Patient does have a primary care doctor Dr. Aguiar. Patient denies any fever no chills admits to nausea but no vomiting. MD Complaint: abdominal pain -: This morning Location: LLQ, suprapubic Radiation: none Migration to: no migration Severity scale (0 -10): 8 Quality: cramping, sharp Consistency: intermittent Improves With: nothing Worsens With: nothing Associated Symptoms: nausea, diarrhea (X1), hematochezia. denies: vomiting, fever, chills, constipation, dysuria, hematemesis, melena, hematuria, anorexia, syncope - Related Data Previous Rx's Medication Instructions Recorded Last Taken Type HYDROcodone/APAP 5-325 [[place] 1 each PO Q6HR PRN #20 tablet 05/20/18 Unknown Rx 5/325] Ibuprofen [Motrin] 600 mg PO Q8H PRN #12 tablet 12/06/18 Unknown Rx Allergies Allergy/AdvReac Type Severity Reaction Status Date / Time Penicillins Allergy Severe Hives Verified 05/16/18 12:57 ED Review of Systems ROS: Stated complaint: ABD PAIN/BLOOD IN STOOL Other details as noted in HPI Comment: All other systems reviewed and negative ED Past Medical Hx - Past Medical History Previous Medical History?: Yes Hx Hypertension: No Hx Diabetes: No Hx Deep Vein Thrombosis: No Hx GERD: Yes Hx Renal Disease: No Hx Sickle Cell Disease: No Hx Seizures: No Hx Asthma: Yes (Last treatment years ago) Hx HIV: No - Surgical History Additional Surgical History: IUD removal due to imbedded - Social History Smoking Status: Never Smoker Substance Use Type: None - Medications Home Medications: Home Medications Medication Instructions Recorded Confirmed Last Taken Type HYDROcodone/APAP 5-325 [[place] 1 each PO Q6HR PRN #20 tablet 05/20/18 Unknown Rx 5/325] Ibuprofen [Motrin] 600 mg PO Q8H PRN #12 tablet 12/06/18 Unknown Rx ED Physical Exam - General Limitations: No Limitations General appearance: alert, in no apparent distress - Head Head exam: Present: atraumatic, normocephalic - Eye Eye exam: Present: normal appearance - ENT ENT exam: Present: mucous membranes moist - Neck Neck exam: Present: normal inspection, full ROM - Respiratory Respiratory exam: Present: normal lung sounds bilaterally. Absent: respiratory distress - Cardiovascular Cardiovascular Exam: Present: regular rate, normal rhythm. Absent: systolic murmur, diastolic murmur, rubs, gallop - GI/Abdominal GI/Abdominal exam: Present: soft, tenderness (Left lower quadrant and suprapubic), guarding, normal bowel sounds. Absent: distended - Rectal Rectal exam: Present: heme (-) stool - Extremities Exam Extremities exam: Present: normal inspection, full ROM - Back Exam Back exam: Present: normal inspection, full ROM - Neurological Exam Neurological exam: Present: alert, oriented X3, normal gait - Psychiatric Psychiatric exam: Present: normal affect, normal mood - Skin Skin exam: Present: warm, dry, intact, normal color. Absent: rash ED Course Vital Signs 09/15/19 16:15 Temperature 99 F Pulse Rate 65 Respiratory 18 Rate Blood Pressure 136/81 O2 Sat by Pulse 100 Oximetry ED Medical Decision Making - Lab Data Result diagrams: 09/15/19 16:43 09/15/19 16:43 Laboratory Tests 09/15/19 09/15/19 09/15/19 16:43 16:43 16:43 WBC 6.0 RBC 4.23 Hgb 12.2 Hct 36.9 MCV 87 MCH 29 MCHC 33 RDW 14.4 Plt Count 156 Lymph % (Auto) 43.2 H [place] % (Auto) 6.1 Eos % (Auto) 3.4 Baso % (Auto) 0.5 Lymph # 2.6 [place] # 0.4 Eos # 0.2 Baso # 0.0 Seg Neutrophils % 46.8 Seg Neutrophils # 2.8 Sodium 137 Potassium 3.8 Chloride 103.3 Carbon Dioxide 23 Anion Gap 15 BUN 10 Creatinine 0.6 L Estimated GFR > 60 BUN/Creatinine Ratio 17 Glucose 82 Calcium 9.4 Total Bilirubin 0.30 AST 14 ALT 13 Alkaline Phosphatase 52 Total Protein 7.4 Albumin 4.3 Albumin/Globulin Ratio 1.4 Lipase 21 HCG, Qual Negative Urine Color Urine Turbidity Urine pH Ur Specific [place] Urine Protein Urine Glucose (UA) Urine Ketones Urine Blood Urine Nitrite Urine Bilirubin Urine Urobilinogen Ur Leukocyte Esterase Urine WBC (Auto) Urine RBC (Auto) U Epithel Cells (Auto) Urine Bacteria (Auto) Urine Mucus 09/15/19 16:54 WBC RBC Hgb Hct MCV MCH MCHC RDW Plt Count Lymph % (Auto) [place] % (Auto) Eos % (Auto) Baso % (Auto) Lymph # [place] # Eos # Baso # Seg Neutrophils % Seg Neutrophils # Sodium Potassium Chloride Carbon Dioxide Anion Gap BUN Creatinine Estimated GFR BUN/Creatinine Ratio Glucose Calcium Total Bilirubin AST ALT Alkaline Phosphatase Total Protein Albumin Albumin/Globulin Ratio Lipase HCG, Qual Urine Color Yellow Urine Turbidity Slightly-cloudy Urine pH 6.0 Ur Specific [place] 1.024 Urine Protein <15 mg/dl Urine Glucose (UA) Neg Urine Ketones Tr Urine Blood Neg Urine Nitrite Neg Urine Bilirubin Neg Urine Urobilinogen < 2.0 Ur Leukocyte Esterase Neg Urine WBC (Auto) 1.0 Urine RBC (Auto) 3.0 U Epithel Cells (Auto) 15.0 H Urine Bacteria (Auto) 1+ Urine Mucus Few - Radiology Data Radiology results: report reviewed Print Report Referring Physician:HIGINIO NAGELPatient Name:SHELIA MERCHANTPatient ID:[id number] of :[id number]:FemaleAccession:[id number] Date:[id number] Status:Finalized Findings [facility] [address] [place] [address] Cat Scan Report Signed Patient: SHELIA MERCHANT MR#: [id number] : 1990 Acct:[id number] Age/Sex: 29 / F ADM Date: 09/15/19 Loc: ED Attending Dr: Ordering Physician: RACHANA VICTOR Date of Service: 09/15/19 Procedure(s): CT abdomen pelvis w con Accession Number(s): [id number] cc: RACHANA VICTOR CT ABDOMEN AND PELVIS WITH CONTRAST INDICATION / CLINICAL INFORMATION: MAIN. TECHNIQUE: Axial CT images were obtained through the abdomen and pelvis after IV contrast. All CT scans at this location are performed using CT dose reduction for ALARA by means of automated exposure control. COMPARISON: CT scan from 07/18/2015 FINDINGS: LOWER CHEST: No significant abnormality. LIVER: Mildly enlarged. Normal contour. No intrahepatic lesion. BILIARY SYSTEM: No significant abnormality. PANCREAS: No significant abnormality. SPLEEN: No significant abnormality. ADRENALS: No significant abnormality. KIDNEYS and URETERS: No significant abnormality. STOMACH / BOWEL: No significant abnormality. PERITONEUM: Small volume of free fluid in the pelvis, simple. No free air. No fluid collection. LYMPH NODES: No adenopathy. VASCULAR STRUCTURES: No significant abnormality. URINARY BLADDER: No significant abnormality. REPRODUCTIVE ORGANS: Retroverted uterus. ADDITIONAL FINDINGS: None. SKELETAL SYSTEM: No significant abnormality. IMPRESSION: 1. No acute abnormality in the abdomen and pelvis. The small volume of simple free fluid in the pelvis is likely physiologic in this young female. 2. Hepatomegaly. Signer Name: Black Pierce MD Signed: 09/15/2019 9:46 PM Workstation Name: [id number] Transcribed By: ESTEFANY Dictated By: Black Pierce MD Electronically Authenticated By: Black Pierce MD Signed Date/Time: 09/15/192145 DD/ 40 TD/TT: - Medical Decision Making 29-year-old -[place]ian female presents to the emergency room complaining of abdominal pain and bright red blood in her stool that she saw this morning. Patient denies any dysuria denies any vaginal discharge denies any blood in the urine but she states that she saw blood in her stool that was quantitative of a teaspoon x1. Patient denies any rectal pain. Patient states her pain is located in her lower abdomen and towards her left. Patient's last menstrual period was 08/27/2019 she is 3 para 3 with her tubes tied. Patient states she did have a loose stool which her stool is usually soft. Patient does have a primary care doctor Dr. Aguiar. Patient denies any fever no chills admits to nausea but no vomiting. CT with contrast abdomen pelvis concern for possible diverticulitis diverticulosis kidney stone appendicitis. Labs are stable no elevation of white count urinalysis within normal limits. Guaiac negative. CT is negative for any acute findings. We will discharge patient home she will be given ibuprofen for discharge. Patient is to follow-up with her primary care provider and STAFF AIR TACTICAL OFFICER as well as a shank scourer. Critical care attestation.: If time is entered above; I have spent that time in minutes in the direct care of this critically ill patient, excluding procedure time. ED Disposition Clinical Impression: Abdominal pain Disposition: DC-01 TO HOME OR SELFCARE Is pt being admited?: No Does the pt Need Aspirin: No Condition: Stable Instructions: Acute Abdominal Pain (ED) Additional Instructions: Labs are stable CT is negative for any acute findings. I recommend for you to follow-up with a shank scourer and a STAFF AIR TACTICAL OFFICER as well as your primary care provider. Referrals: PRIMARY CAREMD [Primary Care Provider] - 3-5 Days [facility] [Provider Group] - 3-5 Days [facility] [Provider [facility]] - 3-5 Days Forms: Accompanied Note, Work/School Release Form(ED)
[2019-09-15] MEDS ORDERED: SODIUM CHLORIDE 0.9% 1000 ML 1,000 ML IV ONE (21:36)
[2019-09-15] MEDS ORDERED: ONDANSETRON 4 MG/2 ML INJ IV ONE (21:36)
--- NOTE | 2019-09-15 21:51 | Cat Scan Report ---
CT ABDOMEN AND PELVIS WITH CONTRAST INDICATION / CLINICAL INFORMATION: MAIN. TECHNIQUE: Axial CT images were obtained through the abdomen and pelvis after IV contrast. All CT scans at this location are performed using CT dose reduction for ALARA by means of automated exposure control. COMPARISON: CT scan from 07/18/2015 FINDINGS: LOWER CHEST: No significant abnormality. LIVER: Mildly enlarged. Normal contour. No intrahepatic lesion. BILIARY SYSTEM: No significant abnormality. PANCREAS: No significant abnormality. SPLEEN: No significant abnormality. ADRENALS: No significant abnormality. KIDNEYS and URETERS: No significant abnormality. STOMACH / BOWEL: No significant abnormality. PERITONEUM: Small volume of free fluid in the pelvis, simple. No free air. No fluid collection. LYMPH NODES: No adenopathy. VASCULAR STRUCTURES: No significant abnormality. URINARY BLADDER: No significant abnormality. REPRODUCTIVE ORGANS: Retroverted uterus. ADDITIONAL FINDINGS: None. SKELETAL SYSTEM: No significant abnormality. IMPRESSION: 1. No acute abnormality in the abdomen and pelvis. The small volume of simple free fluid in the pelv is is likely physiologic in this young female. 2. Hepatomegaly. Signer Name: Black Pierce MD Signed: 09/15/2019 9:46 PM Workstation Name: [id number]
[2019-09-15] MEDS ORDERED: IBUPROFEN 600 MG TAB PO ONE (22:03)
== END 2019-09-15 22:40 | disposition home or self-care (01) ==
LOC: ED 15:52
DX: R10.32 Left lower quadrant pain (principal); R19.7 Diarrhea, unspecified; R11.0 Nausea; K21.9 Gastro-esophageal reflux disease without esophagitis; Z88.0 Allergy status to penicillin; Z79.1 Long term (current) use of non-steroidal anti-inflammatories (NSAID); Z79.899 Other long term (current) drug therapy
CPT/HCPCS: 36415; 74177; 80053; 81001; 82271; 83690; 84703; 85025; 96360; 99284; J2405; J7030; Q9967

== ENCOUNTER 2020-05-06 16:15 | Emergency (ER) | payer OTHER ==
[2020-05-06 16:41] VITALS: BP 168/105
[2020-05-06 17:35] LABS: Bacteria,Urine 1+ /HPF (Negative); Bilirubin,Urine NEG (Negative); Blood,Urine SM (Negative); Color,Urine Yellow (Yellow); Hyaline Casts,Urine 1 /LPF; Mucus,Urine FEW /HPF; Protein,Urine <15 mg/dL mg/dL (Negative); Urobilinogen,Urine < 2.0 mg/dL (<2.0)
[2020-05-06 18:03] LABS: Basophils % (Auto) 0.6 % (0.0-1.8); Eosinophils # (Auto) 0.1 K/mm3 (0.0-0.4); Eosinophils % (Auto) 1.6 % (0.0-4.3); Hematocrit 41.1 % (30.3-42.9); Hemoglobin 13.5 gm/dl (10.1-14.3); Lymphocytes # (Auto) 2.6 K/mm3 (1.2-5.4); Lymphocytes % (Auto) 50.4 % (13.4-35.0); Mean Corpuscular HGB Conc 33 % (30-34); Mean Corpuscular Volume 90 fl (79-97); Monocytes # (Auto) 0.3 K/mm3 (0.0-0.8); Monocytes % (Auto) 5.9 % (0.0-7.3); Red Blood Count 4.59 M/mm3 (3.65-5.03); Red Cell Distribution Width 13.2 % (13.2-15.2)
[2020-05-06 18:04] LABS: Alanine Aminotransferase 13 units/L (7-56); Albumin 4.9 g/dL (3.9-5); Blood Urea Nitrogen 11 mg/dL (7-17); Calcium 9.3 mg/dL (8.4-10.2); Hemolysis Index 6
[2020-05-06 18:06] LABS: BUN/Creatinine Ratio 22
[2020-05-06 18:07] LABS: Platelet Count 188 K/mm3 (140-440)
--- NOTE | 2020-05-06 18:38 | Emergency Department Report ---
ED Abdominal Pain HPI - General Chief Complaint: Abdominal Pain Stated Complaint: LOW STOMACH PAIN/VOMITING PUI?: No Time Seen by Provider: 05/06/20 16:43 Source: patient Mode of arrival: Ambulatory Limitations: No Limitations - History of Present Illness Initial Comments: This is a 29-year-old healthy female with no prior medical history presents the ED complaining of lower pelvic cramping for the past 2 to 3 days. Patient s tates that pain is localized to the lower pelvic region and does not radiate anywhere else. patient states she takes no other medications. patient states she is also had some nausea vomiting and diarrhea for the past couple of days. Patient denies vaginal bleeding, fever, chills, chest pain cough or recent illness MD Complaint: abdominal pain -: days(s) (3) Location: suprapubic Radiation: none Migration to: no migration Severity: mild Severity scale (0 -10): 4 Quality: cramping, aching Improves With: nothing Worsens With: nothing Associated Symptoms: nausea, vomiting, diarrhea, dysuria. denies: fever, hematemesis, hematochezia, melena - Related Data Previous Rx's Medication Instructions Recorded Last Taken Type HYDROcodone/APAP 5-325 [[place] 1 each PO Q6HR PRN #20 tablet 05/20/18 Unknown Rx 5/325] Ibuprofen [Motrin] 600 mg PO Q8H PRN #12 tablet 12/06/18 Unknown Rx Ondansetron [Zofran ODT TAB] 8 mg PO Q12HR #20 tab.rapdis 05/06/20 Unknown Rx Sulfamethoxazole/Trimethoprim 1 each PO BID #14 tablet 05/06/20 Unknown Rx [Bactrim DS TAB] Allergies Allergy/AdvReac Type Severity Reaction Status Date / Time Penicillins Allergy Severe Hives Verified 10/05/19 14:35 ED Review of Systems ROS: Stated complaint: LOW STOMACH PAIN/VOMITING Other details as noted in HPI Comment: All other systems reviewed and negative ED Past Medical Hx - Past Medical History Previous Medical History?: Yes Hx Hypertension: No Hx Diabetes: No Hx Deep Vein Thrombosis: No Hx GERD: Yes Hx Renal Disease: No Hx Sickle Cell Disease: No Hx Seizures: No Hx Asthma: Yes (Last treatment years ago) Hx HIV: No - Surgical History Past Surgical History?: Yes Additional Surgical History: IUD removal due to imbedded - Social History Smoking Status: Never Smoker Substance Use Type: None - Medications Home Medications: Home Medications Medication Instructions Recorded Confirmed Last Taken Type HYDROcodone/APAP 5-325 [[place] 1 each PO Q6HR PRN #20 tablet 05/20/18 Unknown Rx 5/325] Ibuprofen [Motrin] 600 mg PO Q8H PRN #12 tablet 12/06/18 Unknown Rx Ondansetron [Zofran ODT TAB] 8 mg PO Q12HR #20 tab.rapdis 05/06/20 Unknown Rx Sulfamethoxazole/Trimethoprim 1 each PO BID #14 tablet 05/06/20 Unknown Rx [Bactrim DS TAB] ED Physical Exam - General Limitations: No Limitations General appearance: alert, in no apparent distress - Head Head exam: Present: atraumatic, normocephalic - Eye Eye exam: Present: normal appearance - ENT ENT exam: Present: mucous membranes moist - Neck Neck exam: Present: normal inspection - Respiratory Respiratory exam: Present: normal lung sounds bilaterally. Absent: respiratory distress - Cardiovascular Cardiovascular Exam: Present: regular rate, normal rhythm. Absent: systolic murmur, diastolic murmur, rubs, gallop - GI/Abdominal GI/Abdominal exam: Present: soft, normal bowel sounds - Extremities Exam Extremities exam: Present: normal inspection - Back Exam Back exam: Present: normal inspection - Neurological Exam Neurological exam: Present: alert, oriented X3 - Psychiatric Psychiatric exam: Present: normal affect, normal mood - Skin Skin exam: Present: warm, dry, intact, normal color. Absent: rash ED Course Vital Signs 05/06/20 16:38 Temperature 98.1 F Pulse Rate 60 Respiratory 16 Rate Blood Pressure 168/105 [Right] O2 Sat by Pulse 100 Oximetry ED Medical Decision Making - Lab Data Result diagrams: 05/06/20 17:20 05/06/20 17:20 Laboratory Last Values WBC 5.2 K/mm3 (4.5-11.0) 05/06/20 17:20 RBC 4.59 M/mm3 (3.65-5.03) 05/06/20 17:20 Hgb 13.5 gm/dl (10.1-14.3) 05/06/20 17:20 Hct 41.1 % (30.3-42.9) 05/06/20 17:20 MCV 90 fl (79-97) 05/06/20 17:20 MCH 29 pg (28-32) 05/06/20 17:20 MCHC 33 % (30-34) 05/06/20 17:20 RDW 13.2 % (13.2-15.2) 05/06/20 17:20 Plt Count 188 K/mm3 (140-440) 05/06/20 17:20 Lymph % (Auto) 50.4 % (13.4-35.0) H 05/06/20 17:20 [place] % (Auto) 5.9 % (0.0-7.3) 05/06/20 17:20 Eos % (Auto) 1.6 % (0.0-4.3) 05/06/20 17:20 Baso % (Auto) 0.6 % (0.0-1.8) 05/06/20 17:20 Lymph # (Auto) 2.6 K/mm3 (1.2-5.4) 05/06/20 17:20 [place] # (Auto) 0.3 K/mm3 (0.0-0.8) 05/06/20 17:20 Eos # (Auto) 0.1 K/mm3 (0.0-0.4) 05/06/20 17:20 Baso # (Auto) 0.0 K/mm3 (0.0-0.1) 05/06/20 17:20 Seg Neutrophils % 41.5 % (40.0-70.0) 05/06/20 17:20 Seg Neutrophils # 2.1 K/mm3 (1.8-7.7) 05/06/20 17:20 Sodium 140 mmol/L (137-145) 05/06/20 17:20 Potassium 4.2 mmol/L (3.6-5.0) 05/06/20 17:20 Chloride 105.5 mmol/L (98-107) 05/06/20 17:20 Carbon Dioxide 24 mmol/L (22-30) 05/06/20 17:20 Anion Gap 15 mmol/L 05/06/20 17:20 BUN 11 mg/dL (7-17) 05/06/20 17:20 Creatinine 0.5 mg/dL (0.6-1.2) L 05/06/20 17:20 Estimated GFR > 60 ml/min 05/06/20 17:20 BUN/Creatinine Ratio 22 % 05/06/20 17:20 Glucose 87 mg/dL (65-100) 05/06/20 17:20 Calcium 9.3 mg/dL (8.4-10.2) 05/06/20 17:20 Total Bilirubin 0.20 mg/dL (0.1-1.2) 05/06/20 17:20 AST 15 units/L (5-40) 05/06/20 17:20 ALT 13 units/L (7-56) 05/06/20 17:20 Alkaline Phosphatase 61 units/L (35-129) 05/06/20 17:20 Total Protein 7.1 g/dL (6.3-8.2) 05/06/20 17:20 Albumin 4.9 g/dL (3.9-5) 05/06/20 17:20 Albumin/Globulin Ratio 2.2 % 05/06/20 17:20 Lipase 26 units/L (13-60) 05/06/20 17:20 HCG, Quant < 2 mIU/mL (0-4) 05/06/20 17:20 Urine Color Yellow (Yellow) 05/06/20 Unknown Urine Turbidity Slightly-cloudy (Clear) 05/06/20 Unknown Urine pH 6.0 (5.0-7.0) 05/06/20 Unknown Ur Specific [place] 1.024 (1.003-1.030) 05/06/20 Unknown Urine Protein <15 mg/dl mg/dL (Negative) 05/06/20 Unknown Urine Glucose (UA) Neg mg/dL (Negative) 05/06/20 Unknown Urine Ketones Neg mg/dL (Negative) 05/06/20 Unknown Urine Blood Sm (Negative) 05/06/20 Unknown Urine Nitrite Neg (Negative) 05/06/20 Unknown Urine Bilirubin Neg (Negative) 05/06/20 Unknown Urine Urobilinogen < 2.0 mg/dL (<2.0) 05/06/20 Unknown Ur Leukocyte Esterase Neg (Negative) 05/06/20 Unknown Urine WBC (Auto) 1.0 /HPF (0.0-6.0) 05/06/20 Unknown Urine RBC (Auto) 1.0 /HPF (0.0-6.0) 05/06/20 Unknown U Epithel Cells (Auto) 4.0 /HPF (0-13.0) 05/06/20 Unknown Urine Bacteria (Auto) 1+ /HPF (Negative) 05/06/20 Unknown Hyaline Casts 1 /LPF 05/06/20 Unknown Urine Mucus Few /HPF 05/06/20 Unknown - Medical Decision Making This 29-year-old female presents with pelvic pain most likely secondary to a UTI or gastroenteritis. All labs are within normal limits. test negative, urine urinalysis showed mild bacterial infection. We will treat with antibiotics. Discussed with patient bowel rest Discussed follow-up with unit supervisor as well as primary care physician. Patient left the emergency department prior to receiving discharge paperwork and instructions. I discussed with patient if any worsening symptoms or new onset of symptoms to return to ED immediately. - Differential Diagnosis UTI, pyelonephritis, gastroenteritis, Critical care attestation.: If time is entered above; I have spent that time in minutes in the direct care of this critically ill patient, excluding procedure time. ED Disposition Clinical Impression: UTI (urinary tract infection), Gastroenteritis Disposition: ELOPED Is pt being admited?: No Does the pt Need Aspirin: No Condition: Stable Instructions: Viral Gastroenteritis, Adult, [id number], Urinary Tract Infection, Adult, [id number], Abdominal Pain (ED) Additional Instructions: Make sure to follow up with the primary care physician as discussed. Take all your medications as you've been prescribed. If you have any worsening symptoms or develop new symptoms please return to ED immediately. Prescriptions: Sulfamethoxazole/Trimethoprim [Bactrim DS TAB] 1 each PO BID #14 tablet Ondansetron [Zofran ODT TAB] 8 mg PO Q12HR #20 tab.[email or web address] Referrals: [facility] [Provider Group] - 3-5 Days [facility] [place] [Outside] - 3-5 Days [facility] - [place] [Outside] - 3-5 Days Forms: Accompanied Note, Work/School Release Form(ED)
== END 2020-05-06 19:45 | disposition home or self-care (01) ==
LOC: ED 16:15
DX: N39.0 Urinary tract infection, site not specified (principal); K52.9 Noninfective gastroenteritis and colitis, unspecified; K21.9 Gastro-esophageal reflux disease without esophagitis; J45.909 Unspecified asthma, uncomplicated; Z98.890 Other specified postprocedural states; Z79.1 Long term (current) use of non-steroidal anti-inflammatories (NSAID); Z79.899 Other long term (current) drug therapy; Z88.0 Allergy status to penicillin
CPT/HCPCS: 36415; 80053; 81001; 83690; 84702; 85025